=== PATIENT | female | born 1955 | race Caucasian/White ===

== ENCOUNTER 2017-03-05 20:00 | Emergency (ER) | payer MEDICARE ==
[~2017-03-05 20:00] MED LIST: ASAB PO; CENTRUM TAB1 TAB PO; CYMBALTA60 PO; DEXILANT PO; DIL2TAB PO; DUONEB INH; ENABLEX7.5 PO; FIBERCON PO; FISH-EPA1000 MG PO; KEPPRA1000 MG PO; NEUR800 PO; REQUIP1 PO; SINGULAIR1 PO; SUCR PO; ULTRAM50 PO; V5 PO; ZANAFLEX 4 MG TA4 MG PO; ZOCOR40 PO
== END 2017-03-05 21:38 | disposition home or self-care (01) ==
LOC: ER 20:00
DX: S70.02XA Contusion of left hip, initial encounter (principal); J44.9 Chronic obstructive pulmonary disease, unspecified; J45.909 Unspecified asthma, uncomplicated; G47.30 Sleep apnea, unspecified; Z79.82 Long term (current) use of aspirin; Z79.899 Other long term (current) drug therapy; Z88.8 Allergy status to other drugs, medicaments and biological substances; Z88.2 Allergy status to sulfonamides; Z88.6 Allergy status to analgesic agent; Z88.1 Allergy status to other antibiotic agents; Z88.5 Allergy status to narcotic agent; X58.XXXA Exposure to other specified factors, initial encounter
CPT/HCPCS: 73502-LT; 96372; 99283; J1170